=== PATIENT | female | born 1970 | race Caucasian/White ===

== ENCOUNTER 2020-12-21 09:43 | Emergency (ER) | payer BC, OTHER ==
[~2020-12-21] VITALS: Ht 160 cm; Wt 64.0 kg
[~2020-12-21 09:43] MED LIST: ALBU8.5H4 IH
--- NOTE | 2020-12-21 09:51 | NUR ---
No ACS protocol at this time per Dr. Nair.
--- NOTE | 2020-12-21 09:51 | NUR ---
No ekg for now per Dr Nair.
[2020-12-21] MEDS ORDERED: ketorolac trometh. 30mg/ml inj. IV ONE (09:55)
[2020-12-21] MEDS ORDERED: morphine 4 MG/ML inj SYRINge IV ONE (09:55)
--- NOTE | 2020-12-21 10:32 | NUR ---
called and faxed mri form to [facility].
[2020-12-21] MEDS ORDERED: LORazepam 2 mg/ml vial IV ONE (10:55)
--- NOTE | 2020-12-21 11:24 | NUR ---
To MRI w/tech
--- NOTE | 2020-12-21 12:41 | NUR ---
Spouse at bedside.
[2020-12-21 13:26] VITALS: BP 130/83
--- NOTE | 2020-12-21 13:27 | NUR ---
MD Vasquez called MD Nair back to discuss the pt's hx and findings
[2020-12-21] MEDS ORDERED: ORPH100T2 PO (13:57)
[2020-12-21] MEDS ORDERED: HYDR-3972 PO (13:57)
== END 2020-12-21 14:23 | disposition home or self-care (01) ==
LOC: ER 09:43
DX: M54.12 Radiculopathy, cervical region (principal); F17.200 Nicotine dependence, unspecified, uncomplicated; Z90.710 Acquired absence of both cervix and uterus; Z72.89 Other problems related to lifestyle; Z79.899 Other long term (current) drug therapy
CPT/HCPCS: 71045; 72141; 72146; 96374; 96375; 99285; J1885; J2060; J2270